=== PATIENT | male | born 1985 | race Caucasian/White ===

== ENCOUNTER 2018-03-04 21:54 | Emergency (ER) | payer OTHER ==
[2018-03-04 22:10] VITALS: BP 136/88
[2018-03-04] MEDS ORDERED: Hydrocortisone 1% CREAM* 30 GM TUBE TOPICAL ONE (22:18)
--- NOTE | 2018-03-04 22:31 | UC ---
Skin Complaint HPI - HPI Summary HPI Summary: Patient is a 32-year-old male presenting to the with a chief complaint of rash to the dorsum of the bilateral wrists. He states is similar rash occurred several years ago and was treated with steroids. He is unsure when the rash is coming from. He denies any known allergies. The area is pruritic, mildly painful to the touch and appears to be small red papules. Denies any other symptoms including throat symptoms, dysphasia or odynophagia. Denies any chest pain or shortness of breath. - History of Current Complaint Chief Complaint: UCUpperExtremity Time Seen by Provider: 03/04/18 22:17 Stated Complaint: RASH ON WRISTS Hx Obtained From: Patient Onset/Duration: Sudden Onset Skin Exposure Onset/Duration: Hours Ago Timing: Constant Onset Severity: Mild Current Severity: Mild Pain Intensity: 0 Pain Scale Used: 0-10 Numeric - dorsum of the bilateral wrists Location: Discrete Character: Pruritus, Redness Aggravating Factor(s): Nothing Alleviating Factor(s): Nothing Associated Signs & Symptoms: Positive: Negative Related History: Possible Reaction to: Environmental Exposure - Allergy/Home Medications Allergies/Adverse Reactions: Allergies Allergy/AdvReac Type Severity Reaction Status Date / Time No Known Allergies Allergy Verified 03/04/18 22:10 Review of Systems Constitutional: Negative Skin: Rash Eyes: Negative Respiratory: Negative Cardiovascular: Negative Motor: Negative Neurovascular: Negative Musculoskeletal: Negative Neurological: Negative Is Patient Immunocompromised?: No All Other Systems Reviewed And Are Negative: Yes PMH/Surg Hx/FS Hx/Imm Hx Previously Healthy: Yes - Surgical History Surgical History: Yes Surgery Procedure, Year, and Place: 2 titanium rods to lt leg, fixing an "issue " in lt leg. metal plate to rt thumb. titanium kayla to lt femur and fibia - Social History Occupation: Employed Full-time Lives: Alone Alcohol Use: Rare Substance Use Type: None Smoking Status (MU): Light Every Day Tobacco Smoker Type: Cigarettes Amount Used/How Often: 1/2ppd Physical Exam Triage Information Reviewed: Yes Appearance: Well-Appearing, Well-Nourished Vital Signs: Initial Vital Signs Temp 98.1 F 03/04/18 22:04 Pulse 101 03/04/18 22:04 Resp 18 03/04/18 22:04 BP 136/88 04/26/18 22:04 Pulse Ox 98 03/04/18 22:04 Vital Signs Reviewed: Yes Neck exam: Normal Neck: Positive: No Lymphadenopathy Respiratory Exam: Normal Respiratory: Positive: Chest non-tender, Lungs clear Cardiovascular Exam: Normal Cardiovascular: Positive: RRR Musculoskeletal Exam: Normal Musculoskeletal: Positive: Strength Intact Neurological: Positive: Alert Psychological: Positive: Normal Response To Family Skin: Positive: rashes - bilateral dorsal wrists with erythematous .1-.2mm papules coalescing Course/Dx - Course Course Of Treatment: During the course of treatment, the patient is evaluated for bilateral dorsal rash. He is given triamcinolone, prednisone, and hydroxyzine. He understands to return to the for any worsening or changing symptoms including throat swelling symptoms. - Diagnoses Provider Diagnoses: Rash Discharge - Sign-Out/Discharge Documenting (check all that apply): Discharge/Admit/Transfer - Discharge Plan Condition: Stable Disposition: HOME Prescriptions: hydrOXYzine HCL TAB* [Atarax 25 MG TAB*] 25 mg PO TID PRN #12 tab PRN Reason: Itching predniSONE TAB* [Deltasone TAB*] 50 mg PO DAILY #5 tab MDD 1 Triamcinolone 0.5% CREAM(NF) [Triamcinolone 0.5% CREAM*] 1 applic TOPICAL QID # 1 tube Patient Education Materials: Acute Rash (ED) Referrals: No Primary Care Phys,NOPCP [Primary Care Provider] - Additional Instructions: Triamcinolone, apply to affected areas up to 4 times daily Prednisone 50 mg tabs, once daily in the morning Hydroxyzine up to 3 times daily during the day and Benadryl before bed If symptoms worsen or persist, return to the or go to the ED - Billing Disposition and Condition Condition: STABLE Disposition: HOME
== END 2018-03-04 22:30 | disposition home or self-care (01) ==
LOC: UCEAST 21:54
DX: R21 Rash and other nonspecific skin eruption (principal); F17.210 Nicotine dependence, cigarettes, uncomplicated
CPT/HCPCS: 99212; A9270-GY; G0463

== ENCOUNTER 2018-08-02 10:54 | Emergency (ER) | payer OTHER ==
[2018-08-02 11:51] VITALS: BP 131/93
[2018-08-02] MEDS ORDERED: Lidocaine 1%* 5 ML VIAL INJ ONE (12:05)
[2018-08-02] MEDS ORDERED: cefTRIAXone VIAL(*) 1,000 MG VIAL IM ONE (12:05)
--- NOTE | 2018-08-02 12:06 | UC ---
Skin Complaint HPI - HPI Summary HPI Summary: This patient is a 33 year old M presenting to [facility] with a chief complaint of left groin and left foot pain with swelling and red streaking of the left foot worsening over the past few days. Patient reports high fever last night that is improved today. He reports surgery in the left leg with metal plate placement that resulted in similar symptoms roughly ten years ago that improved with oral antibiotics. Current pain is rated 6/10 in severity. - History of Current Complaint Chief Complaint: UCSkin Time Seen by Provider: 08/02/18 11:58 Stated Complaint: RASH Hx Obtained From: Patient Onset/Duration: Gradual Onset, Lasting Days Onset Severity: Mild Current Severity: Moderate Pain Intensity: 6 Pain Scale Used: 0-10 Numeric Location: Foot (Left), Other - left groin Character: Swelling, Pain, Redness Aggravating Factor(s): Nothing Alleviating Factor(s): Nothing Associated Signs & Symptoms: Positive: Fever, Tenderness, Red Streaks Similar Episode/Dx as: infection, treated with PO abx - Allergy/Home Medications Allergies/Adverse Reactions: Allergies Allergy/AdvReac Type Severity Reaction Status Date / Time No Known Allergies Allergy Verified 08/02/18 11:51 Review of Systems Constitutional: Fever Skin: Rash - red streaking Musculoskeletal: Edema, Myalgia All Other Systems Reviewed And Are Negative: Yes PMH/Surg Hx/FS Hx/Imm Hx Previously Healthy: Yes - history of infections - Surgical History Surgical History: Yes Surgery Procedure, Year, and Place: 2 titanium rods to lt leg, fixing an "issue " in lt leg. metal plate to rt thumb. titanium kayla to lt femur and fibia. Placed 10-12 years ago - Family History Known Family History: Negative: Cardiac Disease - Social History Alcohol Use: Occasionally Substance Use Type: Marijuana Smoking Status (MU): Light Every Day Tobacco Smoker Type: Cigarettes Amount Used/How Often: 1/2ppd Household Exposure Type: Cigarettes Physical Exam - Summary Physical Exam Summary: General: well-appearing, no pain distress Skin: warm, color reflects adequate perfusion, dry, Erythematous streak on dorsum of left foot to ankle that reappears on left lower leg Head: normal Eyes: EOMI, YEMI ENT: normal Neck: supple, nontender Respiratory: CTA, breath sounds present Cardiovascular: RRR Abdomen: soft, nontender Bowel: present Musculoskeletal: normal, strength/ROM intact Neurological: sensory/motor intact, A&O x3 Psychological: affect/mood appropriate Triage Information Reviewed: Yes Vital Signs: Initial Vital Signs Temp 97.4 F 08/02/18 11:46 Pulse 97 08/02/18 11:46 Resp 18 08/02/18 11:46 BP 131/93 08/02/18 11:46 Pulse Ox 98 08/02/18 11:46 Vital Signs Reviewed: Yes Course/Dx - Course Course Of Treatment: The origin of the infection appears to be in between the toes of the left foot. The red streaking comes up the left lower leg. The leg is not swollen is no posterior tenderness to the leg. Patient is afebrile in the clinic. Patient reports he Exie feels better now than he did last night. We discussed that if he gets worse he needs to be evaluated in the emergency department. Labwork is pending. Treating with both Keflex and Bactrim. Follow -up with primary care doctor recheck sooner if worse. Patient does go to the emergency department if he gets worse. - Diagnoses Provider Diagnoses: CELLULITIS LLE Discharge - Sign-Out/Discharge Documenting (check all that apply): Patient Departure All imaging exams completed and their final reports reviewed: No Studies - Discharge Plan Condition: Stable Disposition: HOME Prescriptions: Cephalexin CAP* [Keflex CAP*] 500 mg PO QID #40 cap Mupirocin 1 applic TOPICAL TID #22 gm Sulfamethox/Trimethoprim DS* [Bactrim DS 800/160 TAB*] 1 tab PO BID #20 tab Patient Education Materials: Cellulitis (ED) Referrals: [facility] REFERRAL [Outside] Additional Instructions: FOLLOW UP WITH YOUR DOCTOR. GO TO THE EMERGENCY DEPARTMENT FOR ANY WORSENING OF YOUR CONDITION; FEVER, YOU FEEL ILL, THE INFECTION IS SPREADING OR QUESTIONS OR CONCERNS. - Billing Disposition and Condition Condition: STABLE Disposition: Home - Attestation Statements Document Initiated by Scribe: Yes Documenting Scribe: Daphnie Obrien Provider For Whom Zonia is Documenting (Include Credential): Tim Polo MD Scribe Attestation: Daphnie Mayers, scribed for Tim Polo MD on 08/02/18 at 1406. Scribe Documentation Reviewed: Yes Provider Attestation: The documentation as recorded by the Daphnie canales accurately reflects the service I personally performed and the decisions made by me, Tim Polo MD
[2018-08-02 16:48] LABS: ABS Basophils 0 10^3/ul (0-0.2); ABS Eosinophils 0.1 10^3/ul (0-0.6); ABS Lymphocytes 2.2 10^3/ul (1.0-4.8); ABS Monocytes 1.1 10^3/ul (0-0.8); ABS Neutrophils 5.9 10^3/ul (1.5-7.7); ABS Nucleated RBC 0 10^3/ul; Hematocrit 46 % (42-52); Hemoglobin 15.6 g/dl (14.0-18.0); Lymphocyte % 23.8 % (25-47); Mean Corpuscular HGB Conc 34 g/dl (31-36); Mean Corpuscular Hemoglobin 32 pg (27-31); Mean Corpuscular Volume 93 fL (80-94); Nucleated Red Blood Cells % 0; Platelet Count 257 10^3/ul (150-450); Red Blood Count 4.94 10^6/ul (4.00-5.40); Red Cell Distribution Width 13 % (10.5-15); White Blood Count 9.4 10^3/ul (3.5-10.8)
== END 2018-08-02 12:54 | disposition home or self-care (01) ==
LOC: UCEAST 10:54
DX: L03.116 Cellulitis of left lower limb (principal); R50.9 Fever, unspecified; F17.210 Nicotine dependence, cigarettes, uncomplicated
CPT/HCPCS: 36415; 80053; 85025; 86140; 87040; 96372; 99212; G0463; J0696

== ENCOUNTER 2019-09-20 18:14 | Emergency (ER) | payer OTHER ==
--- NOTE | 2019-09-20 19:09 | ED ---
Psychiatric Complaint - HPI Summary HPI Summary: This patient is a 34 year old M presenting to [facility] with a chief complaint of possible depression and SI. Symptoms aggravated by nothing. Symptoms alleviated by nothing. Patient reports he saw his therapist who was concerned of concussion and his partner told him that his therapist was going to call the police unless he visits to hospital. Pt reports hitting himself on head multiple times due to stress and feeling like hurting himself but denies wish to kill himself. Pt reports feeling depressed but has been feeling better as of last few weeks. Denies ever being in hospital for MHE. Pt denies any physical symptoms other than forehead being slightly bruised. - History Of Current Complaint Chief Complaint: EDMentalHealth Time Seen by Provider: 09/20/19 18:32 Hx Obtained From: Patient Onset/Duration: Lasting Weeks, Still Present Timing: Constant Character: Depressed Aggravating Factor(s): Nothing Alleviating Factor(s): Nothing Associated Signs And Symptoms: Positive: Hostile - hitting forehead Has Suicidal: Reports: Thoughts - hurt onself not kill onself - Allergies/Home Medications Allergies/Adverse Reactions: Allergies Allergy/AdvReac Type Severity Reaction Status Date / Time No Known Allergies Allergy Verified 08/02/18 11:51 Home Medications: Home Medications Escitalopram * [Lexapro 10 mg (NF)] 10 mg PO DAILY 09/20/19 [History Confirmed 09/20/19] Zolpidem TAB* [Ambien TAB*] 5 mg PO BEDTIME PRN 09/20/19 [History Confirmed 10/27] PMH/Surg Hx/FS Hx/Imm Hx Endocrine/Hematology History: Denies: Hx Diabetes, Hx Thyroid Disease Cardiovascular History: Denies: Hx Hypertension Respiratory History: Denies: Hx Asthma, Hx Chronic Obstructive Pulmonary Disease (COPD) GI History: Denies: Hx Ulcer - Surgical History Surgery Procedure, Year, and Place: 2 titanium rods to lt leg, fixing an "issue " in lt leg. metal plate to rt thumb. titanium kayla to lt femur and fibia. Placed 10-12 years ago Infectious Disease History: No Infectious Disease History: Denies: Hx Hepatitis, Hx Human Immunodeficiency Virus (HIV), Traveled Outside the [place] in Last 30 Days - Family History Known Family History: Negative: Cardiac Disease - Social History Alcohol Use: Occasionally Hx Substance Use: Yes Substance Use Type: Reports: Marijuana Hx Tobacco Use: Yes Smoking Status (MU): Light Every Day Tobacco Smoker Type: Cigarettes Amount Used/How Often: 1/2ppd Review of Systems Positive: Bruising - on forehead Positive: Depressed, Other - SI All Other Systems Reviewed And Are Negative: Yes Physical Exam - Summary Physical Exam Summary: Constitutional: Well-developed, Well-nourished, Alert. (-) Distressed Skin: Warm, Dry HENT: contusion over left forehead Eyes: Conjunctiva normal Neck: Musculoskeletal ROM normal neck. (-) JVD, (-) Stridor, (-) Tracheal deviation Cardio: Rhythm regular, rate normal, Heart sounds normal; Intact distal pulses; The pedal pulses are 2+ and symmetric. Radial pulses are 2+ and symmetric. (-) Murmur Pulmonary/Chest wall: Effort normal. (-) Respiratory distress, (-) Wheezes, (-) Rales Abd: Soft, (-) tenderness, (-) Distension, (-) Guarding, (-) Rebound Musculoskeletal: (-) Edema Lymph: (-) Cervical adenopathy Neuro: Alert, Oriented x3 Psych: Mood and affect Normal Triage Information Reviewed: Yes Vital Signs On Initial Exam: Initial Vitals Temp Pulse Resp BP Pulse Ox 99.6 F 92 16 146/92 98 09/20/19 18:21 09/20/19 18:21 09/20/19 18:21 09/20/19 18:21 09/20/19 18:21 Vital Signs Reviewed: Yes Procedures - Sedation Patient Received Moderate/Deep Sedation with Procedure: No Diagnostics - Vital Signs Vital Signs Temp Pulse Resp BP Pulse Ox 09/20/19 18:21 99.6 F 92 16 146/92 98 - Laboratory Result Diagrams: 09/20/19 19:07 09/20/19 19:07 Lab Statement: Any lab studies that have been ordered have been reviewed, and results considered in the medical decision making process. Course/Dx - Course Course Of Treatment: This patient is a 34 year old M presenting to [facility] with a chief complaint of possible depression and SI. Pt reports hitting himself on head multiple times due to stress and feeling like hurting himself but denies wish to kill himself. Pt reports feeling depressed but has been feeling better as of last few weeks. Denies ever being in hospital for MHE. Pt denies any physical symptoms other than forehead being slightly bruised. Physical Exam Findings reveals no abnormalities except a contusion over left forehead. Test results with no significant abnormalities expect for WBC 12.2 H, MCH 32 H, Absolute Neuts 8.[address] George diagnoses pt with depression. Pt will be signed out to Dr. Bo from Dr. George at 2200 09/20/19 pending MHE. - Differential Dx/Clinical Impression Provider Diagnosis: Depression Discharge ED - Sign-Out/Discharge Documenting (check all that apply): Sign-Out Patient Signing out patient TO: Lamar Bo Receiving patient FROM: Margi Carr - Discharge Plan Condition: Stable Referrals: No Primary Care Phys,NOPCP [Medical Doctor] - - Billing Disposition and Condition Condition: STABLE - Attestation Statements Document Initiated by Nedaibe: Yes Documenting Scribe: Adela Velasco Provider For Whom Scribe is Documenting (Include Credential): Margi Araujo MD Scribe Attestation: I, Adela Velasco, scribed for Margi Carr MD on 09/20/19 at 2250. Scribe Documentation Reviewed: Yes Provider Attestation: The documentation as recorded by the Adela canales accurately reflects the service I personally performed and the decisions made by me, Margi Araujo MD Status of Scribe Document: Viewed
[2019-09-20 19:13] LABS: ABS Eosinophils 0.2 10^3/ul (0-0.6); ABS Monocytes 0.7 10^3/ul (0-0.8); ABS Neutrophils 8.1 10^3/ul (1.5-7.7); Hematocrit 50 % (42-52); Hemoglobin 17.2 g/dL (14.0-18.0); Lymphocyte % 24.6 %; Mean Corpuscular HGB Conc 35 g/dL (31-36); Mean Corpuscular Hemoglobin 32 pg (27-31); Mean Corpuscular Volume 92 fL (80-94); Mean Platelet Volume 8.2 fL (7.4-10.4); Platelet Count 244 10^3/uL (150-450); Red Blood Count 5.38 10^6 /uL (4.18-5.48); Red Cell Distribution Width 13 % (10-15); White Blood Count 12.2 10^3/uL (3.5-10.8)
[2019-09-20 19:30] LABS: ALT 19 U/L (7-52); AST 15 U/L (13-39); Albumin 4.6 g/dL (3.2-5.2); Albumin/Globulin Ratio 1.4 (1-3); Alkaline Phosphatase 64 U/L (34-104); Anion Gap 6 mmol/L (2-11); BUN/Creatinine Ratio 16.5 (8-20); Blood Urea Nitrogen 17 mg/dL (6-24); CO2 Carbon Dioxide 27 mmol/L (22-32); Calcium 9.9 mg/dL (8.6-10.3); Chloride 104 mmol/L (101-111); EGFR African American 98.9 (>60); EGFR Non-African American 81.7 (>60); Globulin 3.2 g/dL (2-4); Glucose 93 mg/dL (70-100); Potassium 4.4 mmol/L (3.5-5.0); Sodium 137 mmol/L (135-145); Total Protein 7.8 g/dL (6.4-8.9)
[2019-09-20 19:35] LABS: Acetaminophen < 15 mcg/mL; Alcohol < 10 mg/dL (<10); Salicylate < 2.50 mg/dL (<30)
[2019-09-20 19:50] LABS: TSH (Thyroid Stimulating Horm) 2.45 mcIU/mL (0.34-5.60)
--- NOTE | 2019-09-20 22:46 | ED ---
Progress - Progress Note Progress Note: Patient is a sign out at 22:00 on 09/20/[address] Margi Carr MD to Dr. Lamar Bo MD at shift change, pending evaluation and disposition. At 01:03, MH branch associate teller reports that patients case was reviewed by Dr. Romo and who will discharge the patient with diagnosis of mood disorder. Course/Dx - Diagnoses Provider Diagnoses: Mood disorder Discharge ED - Sign-Out/Discharge Documenting (check all that apply): Patient Departure - Discharge, Receiving Sign-Out Receiving patient FROM: Margi Carr - 22:00 on 09/20/19 - Discharge Plan Condition: Stable Disposition: HOME Referrals: [facility] [Outside] - Billing Disposition and Condition Condition: STABLE Disposition: Home - Attestation Statements Document Initiated by Scribe: Yes Documenting Scribe: Moira Sánchez Provider For Whom Nedaibe is Documenting (Include Credential): Lamar Bo MD Scribe Attestation: IMoira, scribed for Lamar Bo MD on 09/21/19 at 0619. Scribe Documentation Reviewed: Yes Provider Attestation: The documentation as recorded by the Moira canales accurately reflects the service I personally performed and the decisions made by me, Lamar Bo MD Status of Scribe Document: Viewed
[2019-09-20 23:40] LABS: Urine Appearance Cloudy; Urine Bilirubin Negative (Negative); Urine Blood Negative (Negative); Urine Color Yellow; Urine Glucose Negative (Negative); Urine Ketones Negative (Negative); Urine Nitrite Negative (Negative); Urine Protein Negative (Negative); Urine Specific Gravity 1.023 (1.010-1.030); Urine Urobilinogen Negative (Negative)
[2019-09-21 00:04] LABS: Urine Benzodiazepine Screen None Detected (None Detect); Urine Opiates Screen None Detected (None Detect)
[2019-09-21 00:58] VITALS: BP 143/103
== END 2019-09-21 00:50 | disposition home or self-care (01) ==
LOC: ED 18:14
DX: S00.93XA Contusion of unspecified part of head, initial encounter (principal); F32.9 Major depressive disorder, single episode, unspecified; R45.851 Suicidal ideations; Z79.899 Other long term (current) drug therapy; F17.210 Nicotine dependence, cigarettes, uncomplicated; X58.XXXA Exposure to other specified factors, initial encounter; Y92.9 Unspecified place or not applicable
CPT/HCPCS: 36415; 80053; 80307; 80320; 80329; 81003; 84443; 85025; 99285; G0480

== ENCOUNTER 2019-12-16 18:16 | Emergency (ER) | payer OTHER ==
--- NOTE | 2019-12-16 18:20 | UC ---
Hand/Wrist HPI - HPI Summary HPI Summary: 34 yo male presents with hand injury. He tells me that on 12/13 he became angry and punched a wall with his right hand. Since that time has had pain and swelling to his right hand. He has been icing it and trying not to use it since that time. Today he was shoveling snow and pain increased - prompting his visit to . He denies numbness or tingling. He is right handed. Hx of boxer fx to right hand - History Of Current Complaint Stated Complaint: HAND INJURY Time Seen by Provider: 12/16/19 18:20 Hx Obtained From: Patient Onset/Duration: Sudden Onset Severity Initially: Moderate Severity Currently: Moderate Pain Intensity: 6 Pain Scale Used: 0-10 Numeric - Allergies/Home Medications Allergies/Adverse Reactions: Allergies Allergy/AdvReac Type Severity Reaction Status Date / Time No Known Allergies Allergy Verified 08/02/18 11:51 Home Medications: Home Medications Ibuprofen [Advil] 200 mg PO 12/16/19 [History] PMH/Surg Hx/FS Hx/Imm Hx - Additional Past Medical History Additional PMH: None - Surgical History Surgical History: Yes Surgery Procedure, Year, and Place: 2 titanium rods to lt leg, fixing an "issue " in lt leg. metal plate to rt thumb. titanium kayla to lt femur and fibia. Placed 10-12 years ago - Family History Known Family History: Negative: Cardiac Disease - Social History Lives: With Family Alcohol Use: Occasionally Substance Use Type: Marijuana Smoking Status (MU): Light Every Day Tobacco Smoker Type: Cigarettes Amount Used/How Often: 1/2ppd Household Exposure Type: Cigarettes Review of Systems All Other Systems Reviewed And Are Negative: No Constitutional: Positive: Negative Skin: Positive: Negative Respiratory: Positive: Negative Cardiovascular: Positive: Negative Musculoskeletal: Positive: Other: - Right hand injury Neurological: Positive: Negative Psychological: Positive: Negative Physical Exam - Summary Physical Exam Summary: GENERAL: NAD. WDWN. No pain distress. SKIN: No rashes, sores, lesions, or open wounds. CHEST: No accessory muscle use. Breathing comfortably and in no distress. CV: Pulses intact radial and ulnar. Cap refill <2seconds MSK: RIGHT HAND: FROM all digits and wrist. Strength 5/5 including engineering technical analyst strength. Moderate edema about ulnar aspect of right hand. TTP about 2nd-5th MCs. NTTP wrist. No snuffbox tenderness. NEURO: Alert. Sensations intact hand and all fingers. PSYCH: Age appropriate behavior. Triage Information Reviewed: Yes Vital Signs: Vital Signs: Temp Pulse Resp BP Pulse Ox 99.2 F 111 16 145/90 97 12/16/19 18:22 12/16/19 18:22 12/16/19 18:22 12/16/19 18:22 12/16/19 18:22 Vital Signs Reviewed: Yes Procedures - Splinting Right Hand-Made Type: orthoglass Splint: ulnar Pre-Proc Neuro Vasc Exam: normal Post-Proc Neuro Vasc Exam: normal Splint Applied by Provider: [facility] - Radiology Hand XR Radiology Interpretation Completed By: ED Physician Summary of Radiographic Findings: Reviwed with Dr. Ward. Fx base of 3rd, 4th , and 5th MC. Hand/Wrist Course/Dx - Course Course Of Treatment: XR wet read positive for fracture as above. Pt placed in ulnar splint encompassing 3rd, 4th, and 5th lower MCs and wrist. NV intact. Advised to RICE and f/u with Orthopedics early next week (within 5 days) - Differential Dx/Diagnosis Provider Diagnosis: Fracture of base of third metacarpal bone of right hand, Fracture of base of fourth metacarpal bone of right hand, Fracture of base of fifth metacarpal bone of right hand Discharge ED - Sign-Out/Discharge Documenting (check all that apply): Patient Departure All imaging exams completed and their final reports reviewed: No - Discharge Plan Condition: Stable Disposition: HOME Patient Education Materials: Hand Fracture (ED) Referrals: Annia Green MD [Primary Care Provider] - Gregorio Escobar MD [Medical Doctor] - As Soon As Possible Additional Instructions: If you develop a fever, shortness of breath, chest pain, new or worsening symptoms - please call your PCP or go to the ED immediately. Your blood pressure was high at todays visit. Please see your primary provider within 4 weeks for recheck and re-evaluation. 1) Keep the splint clean, dry, and intact until you see Orthopedics 2) Please call Orthopedics at the number below to schedule an appointment for Thursday or Thursday next week - Billing Disposition and Condition Condition: STABLE Disposition: Home - Attestation Statements Provider Attestation: This patient was not seen by me. I was available for consult. Chart reviewed. JLD XR reviewed
[2019-12-16 18:33] VITALS: BP 145/90
--- NOTE | 2019-12-17 07:02 | UC ---
- Progress Note Progress Note: Progress Note, December 17, 2019: Final read: positive for multiple metacarpal fxs. c/w wet read. No change in treatment. Alf Soliman MD Course/Dx - Diagnoses Provider Diagnoses: Fracture of base of third metacarpal bone of right hand, Fracture of base of fourth metacarpal bone of right hand, Fracture of base of fifth metacarpal bone of right hand Discharge ED - Sign-Out/Discharge Documenting (check all that apply): Post-Discharge Follow Up All imaging exams completed and their final reports reviewed: Yes - Discharge Plan Condition: Stable Disposition: HOME Patient Education Materials: Hand Fracture (ED) Referrals: Annia Green MD [Primary Care Provider] - Gregorio Escobar MD [Medical Doctor] - As Soon As Possible Additional Instructions: If you develop a fever, shortness of breath, chest pain, new or worsening symptoms - please call your PCP or go to the ED immediately. Your blood pressure was high at todays visit. Please see your primary provider within 4 weeks for recheck and re-evaluation. 1) Keep the splint clean, dry, and intact until you see Orthopedics 2) Please call Orthopedics at the number below to schedule an appointment for Thursday or Thursday next week - Billing Disposition and Condition Condition: STABLE Disposition: Home
== END 2019-12-16 18:58 | disposition home or self-care (01) ==
LOC: UCEAST 18:16
DX: S62.312A Displaced fracture of base of third metacarpal bone, right hand, initial encounter for closed fracture (principal); S62.314A Displaced fracture of base of fourth metacarpal bone, right hand, initial encounter for closed fracture; S62.316A Displaced fracture of base of fifth metacarpal bone, right hand, initial encounter for closed fracture; W22.09XA Striking against other stationary object, initial encounter; Y92.9 Unspecified place or not applicable; F17.210 Nicotine dependence, cigarettes, uncomplicated
CPT/HCPCS: 99212; G0463